=== PATIENT | female | born 1970 | race Caucasian/White ===

== ENCOUNTER 2025-02-18 19:57 | Emergency (ER) | payer OTHER ==
--- OUTSIDE RECORDS SUMMARY | 2025-02-18 20:01 | XMS REPORT | Continuity of Care Document ---
Author Name Unknown Address [address] [facility] [place] [address] [facility] Address [address] 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 [employer] Insurance Name Role Phone MAXIMILIANO QUIÑONES Primary Care Physician Unavaila JENNIE Arellano Attending Clinician UnaXAVI Willard Attending Clinician Unavailable MAXIMILIANO QUIÑONES Attending Clinician Unavailable EDE HART Attending Clinician Unavailable HECTOR KHOURY Attending Clinician Unavailable Lawson Attending Clinician Unavail able MIHAELA ZAIDI Attending Clinician Unavailable Lawson Admitting Clinician Unavail able Payers Payer Name Policy Type Policy Number Effective Date Expirati on Date Source [place] [id number] 2021 00:00:00 Problems Condition Name Condition Details Condition Category Status Onset Date Resolution Date Last Treatment Date Treating Clinician Comments Source Fall Problem Active [facility] Periorbita l contusion of right eye Problem Active [facility] Sprain of right shoulder Problem Active [facility] Tension headache Problem Inactiv e [facility] Problem Condition [facility] Allergies, Adverse Reactions, Alerts Allergy Name Allergy Type Status Severity Reaction(s) Onset Date Inactive Date Treating Clinician Comments Source NO KNOWN DRUG ALLERGY Allergy to substanc e Active Unknown 2023-11 00:00: 00 TEL NO KNOWN DRUG ALLERGY Allergy to substanc e Active Unknown 02-28 00:00: 00 [facility] Social History Social Habit Start Date Stop Date Quantity Comments Source History of tobacco use TEL Sex Assigned At 1970 00:00:00 07-03 00:00:00 Female TEL Smoking Status Start Date Stop Date Source Never smoked tobacco (finding) [facility]EL Medications Ordered Medication Name Filled Medication Name Start Date Stop Date Current Medication? Ordering Clinician Indication Dosage Frequency Signature (SIG) Comments Components Source Oxycodone/A cetaminophe n (Percocet 5-325) 1 Each TAB 2023-11 13:26: 00 No 1 Every 6 Hours as needed for Pain [facility]EL Naproxen (Naprosyn) 500 Mg TAB 2023-11 13:25: 00 No 500mg Twice A Day as needed for Pain [facility]EL Acetaminoph en/Codeine Phosphate (Tylenol #3) 1 Each TAB 07-15 11:24: 00 No Every 4 Hours as needed for Pain [facility] Ibuprofen (Motrin) 800 Mg TAB 07-15 11:24: 00 No 800mg Every 8 Hours as needed for Pain [facility] Acetam/Buta lbital/Caff eine/Codein e (Fioricet W/Codeine) 1 Cap CAP 03-17 11:59: 00 No 1 Every 6 Hours as needed for Headache [facility] Ciprofloxac in Hcl (Ciloxin 0.3% Oph Soln) 75 Drop/5 Ml SOLN 2010-11 07:36: 00 No 1[drp] Every 2 Hours [facility] Ciprofloxac in Hcl 2010-11 07:36: 00 No 1[drp] Every 2 Hours [facility] Acetaminoph en/Hydrocod one Bitart (Vicodin 5-500) 1 Tab TAB 06-09 22:40: 00 No 1 Q 6 Hours Prn [facility] Cyclobenzap rine Hcl (Flexeril) 5 Mg TAB 06-09 22:40: 00 No 5mg Q 8 Hours Prn Muscle [facility] Naproxen (Naprosyn) 500 Mg TAB 06-09 22:40: 00 No 500mg Q 12 Hours Prn [facility] Acetaminoph en/Hydrocod one Bitart 06-09 22:40: 00 No 1 Q 6 Hours Prn [facility] Cyclobenzap rine Hcl 06-09 22:40: 00 No 5mg Q 8 Hours Prn Muscle [facility] Naproxen 06-09 22:40: 00 No 500mg Q 12 Hours Prn [facility] Acetaminoph en/Hydrocod one Bitart (Vicodin Es Tablet) 1 Tab TABLET 04-11 17:57: 00 No 1 Every 4 - 6 Hours [facility] Acetaminoph en/Hydrocod one Bitart 04-11 17:57: 00 No 1 Every 4 - 6 Hours [facility] Acyclovi No 1 Daily [facility] Icar No 1 Daily [facility] Prenatalvit No Daily [facility] Sertraline Hcl (Zoloft) 50 Mg TAB No 50mg Daily [facility] Sertraline Hcl No 50mg Daily [facility] Vital Signs Vital Name Observation Time Observation Value Comments S ource Body Temperature 2024-08-23 14:06:00 98.0 [degF] [facility] Heart Rate 2024-08-23 14:06:00 67 /min [facility] Respiratory rate 2024-08-23 14:06:00 16 /min [facility] BP Systolic 2024-08-23 14:06:00 151 mm[Hg] [facility]EL BP Diastolic 2024-08-23 14:06:00 71 mm[Hg] [facility] BMI (Body Mass Index) 2024-08-23 09:19:00 35.9 kg/m2 [facility] Height 2024-08-23 09:10:00 172.101513 cm TE L Weight 2024-08-23 09:10:00 107.370473 kg TE L BP Diastolic 2021-07-15 12:19:00 75 mm[Hg] [facility] Systolic 2021-07-15 12:19:00 136 mm[Hg] [facility] Heart Rate 2021-07-15 12:19:00 81 /min [facility] Respiratory rate 2021-07-15 12:19:00 19 /min [facility] Body Temperature 2021-07-15 12:19:00 98.1 [degF] [facility] BP Diastolic 2021-07-15 12:15:00 75 mm[Hg] [facility] BP Systolic 2021-07-15 12:15:00 136 mm[Hg] [facility] Heart Rate 2021-07-15 12:15:00 81 /min [facility] Respiratory rate 2021-07-15 12:15:00 19 /min [facility] BP Diastolic 2021-07-15 08:39:00 70 mm[Hg] [facility] BP Systolic 2021-07-15 08:39:00 135 mm[Hg] [facility] Heart Rate 2021-07-15 08:39:00 86 /min [facility] Respiratory rate 2021-07-15 08:39:00 20 /min [facility] Body Temperature 2021-07-15 08:39:00 98.1 [degF] [facility] Procedures Procedure Date / Time Performed Performing Clinician Source Computed tomography of abdomen and pelvis with contrast 2024-08-23 11:35:00 TEL X-ray of chest, two views 2024-08-23 00:00:00 [facility] X-ray of shoulder, two or more views 2024-08-23 00:00:00 [facility] Encounter Stat Only 2021-07-31 00:00:00 [facility] Encounter Stat Only 2021-07-22 00:00:00 [facility] X-ray of shoulder, two or more views 2021-07-15 00:00:00 [facility] Computed tomography of facial bones without contrast 2021-07-15 00:00:[address] [facility] [address] MAXILLOFACIAL W/O DYE 2021-07-15 00:00:00 [facility] X-RAY EXAM OF SHOULDER 2021-07-15 00:00:00 [facility] EMERGENCY DEPT VISIT 2021-07-15 00:00:00 [facility] Encounter Stat Only 2019-09-05 00:00:00 [facility] Cefazolin sodium injection 2019-08-25 00:00:00 [facility] Ketorolac tromethamine inj 2019-08-25 00:00:00 [facility] Inj midazolam hydrochloride 2019-08-25 00:00:00 [facility] Ondansetron hcl injection 2019-08-25 00:00:00 [facility] [id number] 2019-08-25 00:00:00 [facility] Fentanyl citrate injeciton 2019-08-25 00:00:00 [facility] Ringers lactate infusion 2019-08-25 00:00:00 [facility] Carpal tunnel release, right 2019-08-25 00:00:00 [facility] ROUTINE VENIPUNCTURE 2019-08-25 00:00:00 [facility] REVISE ULNAR NERVE AT WRIST 2019-08-25 00:00:00 [facility] CARPAL TUNNEL SURGERY 2019-08-25 00:00:00 [facility] METABOLIC PANEL TOTAL CA 2019-08-25 00:00:00 [facility] URINE TEST 2019-08-25 00:00:00 [facility] COMPLETE CBC AUTOMATED 2019-08-25 00:00:00 [facility] ELECTROCARDIOGRAM TRACING 2019-08-25 00:00:00 [facility] Lt nona band >=5"/yd 2019-08-25 00:00:00 [facility] ECG (electrocardiogram) 2019-08-22 00:00:00 [facility] Minor level established patient office visit 2019-08-15 00:00:00 [facility] Encounter Stat Only 2019-08-11 00:00:00 [facility] Encounters Start Date/Time End Date/Time Encounter Type Admission Type Attending [facility] Facility Care Department Encounter ID Source 2019-10-28 08:45:00 Inpatient JENNIE WATERS [facility] [id number] [facility] 2019-09-22 08:30:00 Inpatient JENNIE WATERS [facility] [id number] [facility] 2024-08-23 09:43:00 2024-08-23 14:09:00 Departed Emergency Room [facility] HCIS [id number] [facility]EL 2024-08-23 09:43:00 2024-08-23 14:09:00 Emergency ER XAVI OKEEFE [facility] [id number] [facility] 2023-12-16 09:07:00 2023-12-16 09:07:00 Outpatient MAXIMILIANO MAYO [facility] [id number] [facility] 2023-05-29 06:54:00 2023-05-29 13:50:00 ambulatory [id number] 2023-05-29 06:54:00 2023-05-29 13:50:00 Outpatient EDE DUTTA [facility] [id number] [facility] 2023-04-22 08:01:00 2023-05-08 00:01:00 Outpatient EDE DUTTA [facility] [id number] [facility] 2023-01-19 16:17:00 2023-02-06 00:01:00 [facility] [id number] [facility] 2023-01-19 16:17:00 2023-01-19 16:17:00 Outpatient HECTOR DICKENS CARMEN MORALES [id number] [facility] 2022-11-19 11:20:00 2022-12-09 00:01:00 Outpatient HECTOR DICKENS CARMEN MORALES [id number] [facility] 2022-10-31 09:20:00 2022-10-31 09:20:00 Outpatient MAXIMILIANO MAYO DARRYN CARMEN [id number] [facility] 2022-10-08 09:21:00 2022-10-08 00:01:00 Outpatient HECTOR DICKENS CARMEN MORALES [id number] [facility] 2022-09-01 09:57:00 2022-09-08 00:01:00 Outpatient GISEL DICKENSBOBBY MORALES [id number] [facility] 2022-08-06 00:00:00 2022-08-06 00:00:00 Outpatient ANGEL_Carl_ Francisco_ [facility] [id number] [facility] 2021-07-22 17:18:00 2021-07-22 17:18:00 Discharged Recurring HECTOR DICKENS [id number] [facility] 2021-07-15 09:46:00 2021-07-15 12:20:00 Departed Emergency Room ER MIHAELA ZAIDI [id number] [facility] 2019-09-05 08:20:00 2019-09-08 23:59:00 Discharged Recurring ILIANA Will. Elizabeth [id number] [facility] 2019-08-25 13:38:00 2019-08-25 16:25:00 Departed Surgical Day Care ILIANA MORALES [place] [id number] [facility] Results Test Description Test Time Test Comments Results Result Co mments Source TELBlood erythrocytes automated count (number/volume)2024-08-23 09:25:00* Test Item Value Reference Range Interpretation Comme [facility] Red Blood Count (test code = 789-8) 5.15 3.8-5.1 TELBlood hemoglobin measurement (mass/volume)2024-08-23 09:25:00* Test Item Value Reference Range Interpretation Comme [facility] Hemoglobin (test code = 718-7) 13.8 12.0-15.2 TELAutomated blood hematocrit (volume fraction)2024-08-23 09:25:00* Test Item Value Reference Range Interpretation Comme [facility] Hematocrit (test code = 4544-3) 42.7 34.0-45.5 TELAutomated erythrocyte mean corpuscular volume (MCV) nfsofdnptvk1831-94-67 09:25:00* Test Item Value Reference Range Interpretation Comme [facility] Mean Corpuscular Volume (bryan t code = 787-2) 83 80-94 TELAutomated erythrocyte mean corpuscular hemoglobin (mass per erythrocyte) 2024-08-23 09:25:00* Test Item Value Reference Range Interpretation Comme nts Mean Corpuscular Hemoglobin (test code = 785-6) 26.8 27.0-33.0 TELAutomated erythrocyte mean corpuscular hemoglobin concentration measurement (mass/kms7482-95-43 09:25:00* Test Item Value Reference Range Interpretation Commomar nts Mean Corpuscular Hemoglobin Concent (test code = 786-4) 32.3 33.0-37.0 TELAutomated erythrocyte distribution width [id number] 09:25:00* Test Item Value Reference Range Interpretation Commomar nts Red Cell Distribution Width (test code = 788-0) 15.7 10.7-14.5 TELAutomated blood platelet count (count/volume)2024-08-23 09:25:00* Test Item Value Reference Range Interpretation Commomar [facility] Platelet Count (test code = 777-3) 326 150-450 TELAutomated blood platelet mean volume klpxryvrcly0731-08-80 09:25:00* Test Item Value Reference Range Interpretation Commomar [facility] Mean Platelet Volume (test c ode = 84038-1) 10.3 8.5-12.1 TELAutomated blood neutrophil count as percentage of total vzcqjlcglm5141-82-98 09:25:00* Test Item Value Reference Range Interpretation Commomar nts Neutrophils (%) (Auto) (test code = 770-8) 64 47-75 TELAutomated blood immature granulocyte count as percentage of total leukocytes 2024-08-23 09:25:00* Test Item Value Reference Range Interpretation Commomar nts Immature Granulocyte # (Auto ) (test code = 14808-5) 0.0 0.0-0.0 TELAutomated blood lymphocyte count as percentage of total ykggfnjywq6098-67-39 09:25:00* Test Item Value Reference Range Interpretation Commomar nts Lymphocytes (%) (Auto) (test code = 736-9) 25 25-44 TELAutomated blood monocyte count as percentage of total oadqhiwbbs5210-07-22 09:25:00* Test Item Value Reference Range Interpretation Commomar nts Monocytes (%) (Auto) (test c ode = 5905-5) 9 3-10 TELAutomated blood eosinophil count as percentage of total fapbtihbag5563-87-33 09:25:00* Test Item Value Reference Range Interpretation Commomar nts Eosinophils (%) (Auto) (test code = 713-8) 2 0-7 TELAutomated blood basophil count as percentage of total hqmwdstwyv7069-55-11 09:25:00* Test Item Value Reference Range Interpretation Comme nts Basophils (%) (Auto) (test c ode = 706-2) 0 0-1 TELAutomated blood nucleated erythrocyte count as percentage of total leukocytes 2024-08-23 09:25:00* Test Item Value Reference Range Interpretation Comme nts Nucleated Red Blood Cells % (test code = 93278-8) 0.0 0-0.2 TELAutomated blood neutrophil count (number/volume)2024-08-23 09:25:00* Test Item Value Reference Range Interpretation Comme nts Neutrophils # (Auto) (test c ode = 751-8) 4.8 1.3-6.7 TELAutomated blood lymphocyte count (number/volume)2024-08-23 09:25:00* Test Item Value Reference Range Interpretation Comme nts Lymphocytes # (Auto) (test c ode = 731-0) 1.8 1.4-4.1 TELBlood monocytes automated count (number/volume)2024-08-23 09:25:00* Test Item Value Reference Range Interpretation Comme nts Monocytes # (Auto) (test code = 742-7) 0.6 0-1.3 TELAutomated blood eosinophil [id number] 09:25:00* Test Item Value Reference Range Interpretation Comme nts Eosinophils # (Auto) (test c ode = 711-2) 0.1 0-0.8 TELAutomated blood basophil count (number/volume)2024-08-23 09:25:00* Test Item Value Reference Range Interpretation Comme nts Basophils # (Auto) (test code = 704-7) 0.0 0-0.1 TELnRBC # Bld [id number] 09:25:00* Test Item Value Reference Range Interpretation Comme nts Nucleated Red Blood Cells # (test code = 771-6) 0.00 0-0.01 TELService Cmnt 04 [id number]-Veh2864-24-15 09:25:00* Test Item Value Reference Range Interpretation Comme nts Manual Differential (test co de = 8265-1) Not Ind TELSodium ZesCg-uXrs7024-63-15 09:25:00* Test Item Value Reference Range Interpretation Comme nts Sodium Level (test code = 2951-2) 143 136-145 TELSerum or plasma potassium measurement (moles/volume)2024-08-23 09:25:00* Test Item Value Reference Range Interpretation Comme nts Potassium Level (test code = 2823-3) 3.8 3.5-5.1 TELSerum or plasma chloride measurement (moles/volume)2024-08-23 09:25:00* Test Item Value Reference Range Interpretation Comme nts Chloride Level (test code = 2075-0) 108 98-107 TELSerum or plasma total carbon dioxide measurement (moles/volume)2024-08-23 09:25:00* Test Item Value Reference Range Interpretation Comme nts Carbon Dioxide Level (test c ode = 8-9) 24 22-29 TELSerum or plasma anion gap determination (moles/volume)2024-08-23 09:25:00* Test Item Value Reference Range Interpretation Comme nts Anion Gap (test code = 24831-4) 15 8-18 TELSerum or plasma urea nitrogen measurement (mass/volume)2024-08-23 09:25:00* Test Item Value Reference Range Interpretation Comme nts Blood Urea Nitrogen (test co de = 3094-0) 10 10-20 TELSerum or plasma creatinine measurement (mass/volume)2024-08-23 09:25:00* Test Item Value Reference Range Interpretation Comme nts Creatinine (test code = 2160-0) 0.8 0.6-1.1 TELGFR/BSA.pred SerPl BGKD-RmQYsy1870-15-15 09:25:00* Test Item Value Reference Range Interpretation Comme nts Estimat Glomerular Filtratio n Rate (test code = 75228-2) 80 67-119 TELSerum or plasma glucose measurement (mass/volume)2024-08-23 09:25:00* Test Item Value Reference Range Interpretation Comme nts Glucose Level (test code = 2345-7) 102 60-100 TELSerum or plasma calcium measurement (mass/volume)2024-08-23 09:25:00* Test Item Value Reference Range Interpretation Comme nts Calcium Level (test code = 26075-0) 9.7 8.4-10.2 TELSerum or plasma total bilirubin measurement (mass/volume)2024-08-23 09:25:00 * Test Item Value Reference Range Interpretation Comme nts Total Bilirubin (test code = 1975-2) 1.1 0.2-1.2 TELSerum or plasma aspartate aminotransferase measurement (enzymatic activity/volume)2024-08-23 09:25:00* Test Item Value Reference Range Interpretation Comme nts Aspartate Amino Transf (AST/ SGOT) (test code = 1920-8) 25 5-34 TELSerum or plasma alanine aminotransferase measurement (enzymatic activity/volume)2024-08-23 09:25:00* Test Item Value Reference Range Interpretation Comme nts Alanine Aminotransferase (AL T/SGPT) (test code = 1742-6) 29 0-55 TELSerum or plasma protein measurement (mass/volume)2024-08-23 09:25:00* Test Item Value Reference Range Interpretation Comme nts Total Protein (test code = 2885-2) 7.8 6.4-8.3 TELSerum or plasma albumin measurement (mass/volume)2024-08-23 09:25:00* Test Item Value Reference Range Interpretation Comme nts Albumin (test code = 1751-7) 4.4 3.5-5.0 TELSerum or plasma alkaline phosphatase measurement (enzymatic activity/volume) 2024-08-23 09:25:00* Test Item Value Reference Range Interpretation Comme nts Alkaline Phosphatase (test c ode = 6768-6) 111 40-150 TELAutomated blood leukocyte count (number/volume)2019-08-22 12:23:00* Test Item Value Reference Range Interpretation Comme nts White Blood Count (test code = 6690-2) 7.0 4.5-11.5 [facility] count (number/volume)2019-08-22 12:23:00* Test Item Value Reference Range Interpretation Comme nts Red Blood Count (test code = 789-8) 4.55 3.8-5.1 [facility] hemoglobin measurement (mass/volume)2019-08-22 12:23:00* Test Item Value Reference Range Interpretation Comme nts Hemoglobin (test code = 718-7) 9.7 12.0-15.2 [facility] HealthAutomated blood hematocrit (volume fraction)2019-08-22 12:23:00* Test Item Value Reference Range Interpretation Comme nts Hematocrit (test code = 4544-3) 32.8 34.0-45.5 [facility] Health[facility]ated erythrocyte mean corpuscular volume (MCV) measurement 2019-08-22 12:23:00* Test Item Value Reference Range Interpretation Comme nts Mean Corpuscular Volume (bryan t code = 787-2) 72 80-94 [facility] HealthAutomated erythrocyte mean corpuscular hemoglobin (mass per erythrocyte)2019-08-22 12:23:00* Test Item Value Reference Range Interpretation Comme nts Mean Corpuscular Hemoglobin (test code = 785-6) 21.3 27.0-33.0 [facility] HealthAutomated erythrocyte mean corpuscular hemoglobin concentration measurement (mass/fub4546-39-82 12:23:00* Test Item Value Reference Range Interpretation Comme nts Mean Corpuscular Hemoglobin Concent (test code = 786-4) 29.6 33.0-37.0 [facility] HealthAutomated erythrocyte distribution width [id number] 12:23:00 * Test Item Value Reference Range Interpretation Comme nts Red Cell Distribution Width (test code = 788-0) 18.1 10.7-14.5 [facility] HealthAutomated blood platelet count (count/volume)2019-08-22 12:23:00 * Test Item Value Reference Range Interpretation Comme nts Platelet Count (test code = 777-3) 349 150-450 [facility] HealthAutomated blood platelet mean volume ovnbliqhmok9041-31-32 12:23:00* Test Item Value Reference Range Interpretation Comme nts Mean Platelet Volume (test c ode = 05152-6) 11.3 5.7-10.7 [facility] HealthSerum or plasma sodium measurement (moles/volume)2019-08-22 12:23:00* Test Item Value Reference Range Interpretation Comme nts Sodium Level (test code = 2951-2) 138 136-145 [facility] Health[facility]um or plasma potassium measurement (moles/volume)2019-08-22 12:23:00* Test Item Value Reference Range Interpretation Comme nts Potassium Level (test code = 2823-3) 4.3 3.5-5.1 [facility] Health[facility] or plasma chloride measurement (moles/volume)2019-08-22 12:23:00* Test Item Value Reference Range Interpretation Comme nts Chloride Level (test code = 2075-0) 106 98-107 [facility] Health[facility]um or plasma carbon dioxide measurement (moles/volume) 2019-08-22 12:23:00* Test Item Value Reference Range Interpretation Comme nts Carbon Dioxide Level (test c ode = 2027-) 21 24-33 [facility] HealthSerum or plasma anion gap 4 determination (moles/volume) 2019-08-22 12:23:00* Test Item Value Reference Range Interpretation Comme nts Anion Gap (test code = 1863-0) 15 8-18 [facility] Health[facility]um or plasma urea nitrogen measurement (mass/volume)2019-08-22 12:23:00* Test Item Value Reference Range Interpretation Comme nts Blood Urea Nitrogen (test co de = 3094-0) 11 6-20 [facility] Health[facility]um or plasma creatinine measurement (mass/volume)2019-08-22 12:23:00* Test Item Value Reference Range Interpretation Comme nts Creatinine (test code = 2160-0) 0.7 0.7-1.3 [facility] (GFR) estimation/1.73 sq m using serum, plasma, or whole blood creatinine measurement with MDRD equation 2019-08-22 12:23:00* Test Item Value Reference Range Interpretation Comme nts Estimat Glomerular Filtratio n Rate (test code = 44535-6) 95 73-125 [facility] HealthSerum or plasma glucose measurement (mass/volume)2019-08-22 12:23:00* Test Item Value Reference Range Interpretation Comme nts Glucose Level (test code = 2345-7) 86 60-100 [facility] Health[facility]um or plasma calcium measurement (mass/volume)2019-08-22 12:23:00* Test Item Value Reference Range Interpretation Comme nts Calcium Level (test code = 57322-0) 8.9 8.3-10.5 [facility]
[2025-02-18] MEDS ORDERED: ONDANSETRON 4 MG/2 ML VIAL ONE (20:06)
[2025-02-18] MEDS ORDERED: NA CHLORIDE 0.9% 1,000 ML ONE (20:06)
[2025-02-18 20:28] LABS: Absolute Eosinophils 0.1 K/uL (0-0.5); Absolute Lymphocytes (CBC) 0.9 K/uL (0.7-4.9); Absolute Monocytes 0.4 K/uL (0.1-1.3); Absolute Neutrophil 5.4 K/uL (1.8-8.0); Basophils % 0.4 % (0-1.3); Eosinophils % 1.3 % (0-4.4); Hematocrit 35.9 % (36.0-45.0); Hemoglobin 11.8 g/dL (12.0-15.0); Lymphocytes % 13.8 % (15.3-44.8); MCH 26.3 pg (27.0-35.0); MCHC 32.9 g/dL (32.0-36.0); MCV 80.1 fL (80-100); MPV 8.8 fL (7.6-11.3); Monocytes % 5.8 % (3.3-12.3); Neutrophils % 78.7 % (41.7-73.7); Nucleated Red Blood Cells % 0.1 % (0-0); Platelets 230 thou/uL (152-406); RBC Red Blood Cell Count 4.48 M/uL (3.86-4.86); Red Cell Distribution Width 15.1 % (12.1-15.2)
[2025-02-18] MEDS ORDERED: PROMETHAZINE INJ 25 MG/ML AMP ONE (20:28)
[2025-02-18 20:35] LABS: Protime INR 1.06
[2025-02-18 20:47] LABS: BUN Blood Urea Nitrogen 9 mg/dL (7-18); Bicarbonate 25 mEq/L (21-32); Glomerular Filtration Rate 97 ml/min (=/>90); Glucose Level 111 mg/dL (74-106); NT PRO-BNP 97 pg/mL (<125); Sodium Level 139 mEq/L (136-145)
[2025-02-18 20:51] LABS: Troponin High Sensitivity < 3.0 pg/mL (<58.9)
[2025-02-18 20:54] LABS: Influenza A Ag Negative; Influenza B Ag Negative; SARS-CoV-2 Antigen Rapid Res Negative (Negative)
--- NOTE | 2025-02-18 21:24 | RAD REPORT ---
EXAM: CT brain without contrast HISTORY: Dizziness COMPARISON: None TECHNIQUE: Multiple contiguous axial images were obtained and a CT of the brain without contrast.. Sagittal and coronal reconstruction performed. Automated exposure control, adjustment of the mA and/or kV according to patient size, and/or iterative reconstruction. Unless otherwise specified, incidental f indings do not require dedicated imaging follow-up FINDINGS: An intracranial bleed is not seen Ventricles are normal caliber No extra-axial fluid collection noted No significant hypodensity within the brain No fluid within the visualized sinuses or mastoids noted. IMPRESSION: No acute intracranial abnormality noted. If the patient continues to have symptoms to suggest an acute intracranial abnormality then MRI of th e brain would be recommended.
--- NOTE | 2025-02-18 21:34 | RAD REPORT ---
EXAMINATION: CT ABDOMEN AND PELVIS WITH CONTRAST CLINICAL INDICATION: Abdominal pain TECHNIQUE: CT abdomen and pelvis was performed, after the administration of 100 cc Isovue-300.. Sagit atul and coronal reconstructions were obtained. One or more of the following dose reduction techniques were used: Automated exposure control, adjustment of the mA and kV according to patient si ze, and iterative reconstruction. Unless otherwise specified, incidental findings do not require dedicated imaging follow-up. [id number]. Oral contrast was not given which limits evaluation of bowel and appendix. COMPARISON: .None FINDINGS: Post surgical changes involve the stomach. Liver, spleen, pancreas, adrenals and kidneys appear unremarkable No evidence of diverticulitis. Small umbilical hernia. No adnexal mass Fluid within nondilated large and small bowel : IMPRESSION: Fluid within nondilated large and small bowel may indicate an enteritis
[2025-02-18] MEDS ORDERED: CIPROFLOXACIN 400mg IV 400 MG/200 ML BAG IV ONE (21:53)
[2025-02-18] MEDS ORDERED: METRONIDAZOLE 500mg IVPB 500 MG/100 ML BAG IV ONE (21:53)
--- NOTE | 2025-02-19 00:53 | ER ---
Nurse's Notes [facility] Name: Elma Phelps Age: 54 yrs Sex: Female : 1970 Arrival Date: 02/18/2025 Time: 19:57 Bed 20 Private MD: Diagnosis: Other specified noninfective gastroenteritis and colitis Presentation: 02/18 19:58 Chief complaint: Patient states: Pt came from work and was feeling dizzy and nauseous bm8 that started at 1920. 19:58 Coronavirus screen: Vaccine status: Patient reports receiving the 2nd dose of the covid bm8 vaccine. At this time, the client does not indicate any symptoms associated with coronavirus-19. Ebola Screen: Patient negative for fever greater than or equal to 101.5 degrees Fahrenheit, and additional compatible Ebola Virus Disease symptoms Patient denies exposure to infectious person. Patient denies travel to an Ebola-affected area in the 21 days before illness onset. No symptoms or risks identified at this time. Initial Sepsis Screen: Does the patient meet any 2 criteria? No. Patient's initial sepsis screen is negative. Does the patient have a suspected source of infection? No. Patient's initial sepsis screen is negative. Risk Assessment: Do you want to hurt yourself or someone else? Patient reports no desire to harm self or others. Onset of symptoms was February 18, 2025 at 19:20. 19:58 Method Of Arrival: Ambulatory bm8 19:58 Acuity: BRIANA 2 bm8 Triage Assessment: 19:58 General: Appears distressed, uncomfortable, Behavior is calm, cooperative, appropriate bm8 for age. 19:58 Pain: Denies pain. EENT: No deficits noted. No signs and/or symptoms were reported bm8 regarding the EENT system. 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 Full function Gait is unsteady, Speech is normal, Facial symmetry appears normal, Pupils are PERRLA, Pupil Size: 4 mm Intact Reports dizziness, since 1919. Cardiovascular: Denies chest pain, shortness of breath, Heart tones S1 S2 present Capillary refill < 3 seconds in bilateral fingers Patient's skin is warm and dry. Rhythm is RBBB. Respiratory: Airway is patent Trachea midline Respiratory effort is even, unlabored, Respiratory pattern is regular, symmetrical, Breath sounds are clear bilaterally. GI: Reports nausea. : No signs and/or symptoms were reported regarding the genitourinary system. Derm: No signs and/or symptoms reported regarding the dermatologic system. Musculoskeletal: No signs and/or symptoms reported regarding the musculoskeletal system. 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 - Infectious Disease History:: Denies. - Social history:: Smoking status: Patient denies any tobacco usage or history of. Screenin:49 [facility] ED Fall Risk Assessment (Adult) History of falling in the last 3 months, bm8 including since admission No falls in past 3 months (0 pts) Confusion or Disorientation No (0 pts) Intoxicated or Sedated No (0 pts) Impaired Gait Yes (1 pt) Mobility Assist Device Used No (0 pt) Altered Elimination No (0 pt) Score/Fall Risk Level 0 - 2 = Low Risk Oriented to surroundings, Maintained a safe environment, Educated pt \T\ family on fall prevention, incl call for assistance when getting out of bed, Assessed \T\ reinforced patient's understanding of fall precautions, Hourly rounding (assess needs \T\ fall precautionary measures) done, Used ambulatory aids as needed (educated on \T\ assisted with), Used gait belt as appropriate. Abuse screen: Denies threats or abuse. Nutritional screening: No deficits noted. Tuberculosis screening: No symptoms or risk factors identified. Assessment: 20:49 Reassessment: Patient appears in no apparent distress at this time. Patient and/or bm8 family updated on plan of care and expected duration. Pain level reassessed. Patient is alert, oriented x 3, equal unlabored respirations, skin warm/dry/pink. Patient states feeling better. Patient states symptoms have improved. GI: Patient currently denies nausea. 21:59 Reassessment: Patient appears in no apparent distress at this time. Patient and/or bm8 family updated on plan of care and expected duration. Pain level reassessed. Patient is alert, oriented x 3, equal unlabored respirations, skin warm/dry/pink. Patient denies pain at this time. Patient states feeling better. Patient states symptoms have improved. GI: Patient currently denies nausea. 22:56 Reassessment: Patient appears in no apparent distress at this time. Patient and/or bm8 family updated on plan of care and expected duration. Pain level reassessed. Patient is alert, oriented x 3, equal unlabored respirations, skin warm/dry/pink. Patient denies pain at this time. Patient states feeling better. Patient states symptoms have improved. 02/19 00:11 Reassessment: Patient appears in no apparent distress at this time. No changes from 8 previously documented assessment. Patient and/or family updated on plan of care and expected duration. Pain level reassessed. Patient is alert, oriented x 3, equal unlabored respirations, skin warm/dry/pink. 01:06 Reassessment: Patient appears in no apparent distress at this time. Patient and/or bm8 family updated on plan of care and expected duration. Pain level reassessed. Patient is alert, oriented x 3, equal unlabored respirations, skin warm/dry/pink. Patient denies pain at this time. Patient states feeling better. Patient states symptoms have improved. Vital Signs: 02/18 19:58 BP 166 / 97; Pulse 82; Resp 18; Temp 98.1; Pulse Ox 100% ; Pain 0/10; bm8 20:49 BP 136 / 96; Pulse 84; Resp 18; Temp 98.1; Pulse Ox 100% ; Pain 0/10; bm8 21:59 BP 134 / 78; Pulse 69; Resp 18; Temp 98.1; Pulse Ox 94% ; Pain 0/10; bm8 22:56 BP 122 / 91; Pulse 68; Resp 18; Temp 98.1; Pulse Ox 91% ; Pain 0/10; bm8 02/19 00:11 BP 129 / 74; Pulse 67; Resp 14; Temp 98.1; Pulse Ox 94% ; Pain 0/10; bm8 01:06 BP 133 / 75; Pulse 60; Resp 15; Temp 98.2; Pulse Ox 100% ; Pain 0/10; bm8 02/18 19:58 Pain Scale: Adult bm8 20:49 Pain Scale: Adult bm8 21:59 Pain Scale: Adult bm8 22:56 Pain Scale: Adult bm8 02/19 00:11 Pain Scale: Adult bm8 01:06 Pain Scale: Adult bm8 [place] Coma Score: 02/18 20:49 Eye Response: spontaneous(4). Motor Response: obeys commands(6). Verbal Response: bm8 oriented(5). Total: 15. 21:59 Eye Response: spontaneous(4). Motor Response: obeys commands(6). Verbal Response: bm8 oriented(5). Total: 15. 22:56 Eye Response: spontaneous(4). Motor Response: obeys commands(6). Verbal Response: bm8 oriented(5). Total: 15. 02/19 00:11 Eye Response: spontaneous(4). Motor Response: obeys commands(6). Verbal Response: bm8 oriented(5). Total: 15. 01:06 Eye Response: spontaneous(4). Motor Response: obeys commands(6). Verbal Response: bm8 oriented(5). Total: 15. ED Course: 02/18 19:58 Patient arrived in ED. [email or web address] 19:58 Arm band placed on right wrist. bm8 19:59 Bayron Prieto, RN is Primary Nurse. bm8 19:59 Shashank Wong FNP-C [facility]. dr5 20:00 Ursula Jaramillo MD is Attending Physician. dr5 20:05 No provider procedures requiring assistance completed. Initial lab(s) drawn, by me, bm8 sent to lab. EKG done, by ED staff, reviewed by Shashank LARA COVID swab sent to lab. Flu and/or RSV swab sent to lab. 20:05 Inserted saline lock: 20 gauge in right forearm, using aseptic technique. Blood bm8 collected. Flushed with 10 mL NS. Patient maintains SpO2 saturation greater than 95% on room air. 20:33 Triage completed. bm8 20:49 Patient has correct armband on for positive identification. Placed in gown. Bed in low bm8 position. Call light in reach. Side rails up X2. Client placed on continuous cardiac and pulse oximetry monitoring. NIBP monitoring applied. case monitor on. Pulse ox on. NIBP on. Door closed. Noise minimized. Warm blanket given. Pillow given. Verbal reassurance given. Head of bed elevated. 20:58 CT Head Brain wo Cont In Process Unspecified. EDMS 21:07 CT Abd/Pelvis - IV Contrast Only In Process Unspecified. EDMS 02/19 01:06 Provided Education on: post er care. bm8 01:06 IV discontinued, intact, bleeding controlled, No redness/swelling at site. Pressure bm8 dressing applied. Administered Medications: 02/18 20:26 Drug: NS 0.9% IV 1000 ml IV at 1000 ml once; to be given as a bolus over 60 minutes bm8 Route: IV; Rate: 1000 ml; Site: right forearm; 22:00 Follow up: Response: No adverse reaction; IV Status: Completed infusion bm8 20:26 Drug: Ondansetron IVP 4 mg IVP once; over 2 minutes Route: IVP; Site: right forearm; bm8 21:21 Follow up: Response: No adverse reaction bm8 20:33 Drug: Promethazine IVP 25 mg IVP once Route: IVP; Site: right forearm; bm8 21:21 Follow up: Response: No adverse reaction bm8 21:59 Drug: metroNIDAZOLE IVPB 500 mg 100 ml IVPB at 200 ml/hr once over 30 mins Volume: 100 bm8 ml; Route: IVPB; Rate: 200 ml/hr; Infused Over: 30 mins; Site: right forearm; 22:56 Follow up: Response: No adverse reaction; IV Status: Completed infusion bm8 22:55 Drug: Ciprofloxacin IVPB 400 mg 200 ml IVPB once over 60 mins Volume: 200 ml; Route: bm8 IVPB; Infused Over: 60 mins; Site: right forearm; 02/19 00:13 Follow up: Response: No adverse reaction; IV Status: Completed infusion bm8 Medication: 02/18 20:49 VIS not applicable for this client. bm8 Outcome: 02/19 00:53 Discharge ordered by . sim 01:06 Discharged to home ambulatory, bm8 01:06 Condition: stable 01:06 Discharge instructions given to patient, family, Instructed on discharge instructions, follow up and referral plans. no drinking with medication, no driving heavy equipment, medication usage, safety practices, Demonstrated understanding of instructions, follow-up care, medications, Prescriptions given X 3, 01:14 Patient left the ED. bm8 Signatures: Dispatcher [employer] EDSC Anel Sethi Brad, RN RN bm8 Marvin Shashank, STEEL ERECTOR APPRENTICE-C STEEL ERECTOR APPRENTICE-Cdr5
--- NOTE | 2025-02-19 00:53 | EDPHYS ---
Physician Documentation [facility] Name: Elma Phelps Age: 54 yrs Sex: Female : 1970 Arrival Date: 02/18/2025 Time: 19:57 Bed 20 Private MD: ED Physician Ursula Jaramillo HPI: 02/19 02:04 This 54 yrs old Female presents to ER via Ambulatory with complaints of dr5 Dizziness, Nausea. 02:04 Patient is a 54-year-old female with no past medical history coming in with nausea and dr5 dizziness that started around 1900. Patient denies any pain, chest pain, shortness of breath.. ADMIN DIR: 02/18 19:58 unknown bm8 Historical: - Allergies: 20:46 No Known Allergies; bm8 - Home Meds: 20:46 duloxetine 60 mg oral capsule,delayed release (e.c.) 2 caps daily [Active]; bm8 - PMHx: 20:46 None; bm8 - Immunization history:: Adult Immunizations up to date. - Infectious Disease History:: Denies. - Social history:: Smoking status: Patient denies any tobacco usage or history of. ROS: 02/19 02:04 Constitutional: as per hpi dr5 Exam: 02:04 Constitutional: This is a well developed, well nourished patient who is awake, alert, dr5 and in no acute distress. Head/Face: Normocephalic, atraumatic. Eyes: Pupils equal round and reactive to light, extra-ocular motions intact. Lids and lashes normal. Conjunctiva and sclera are non-icteric and not injected. Cornea within normal limits. Periorbital areas with no swelling, redness, or edema. Neck: Trachea midline, no thyromegaly or masses palpated, and no cervical lymphadenopathy. Supple, full range of motion without nuchal rigidity, or vertebral point tenderness. No Meningismus. Chest/axilla: Normal chest wall appearance and motion. Nontender with no deformity. No lesions are appreciated. Cardiovascular: Regular rate and rhythm with a normal S1 and S2. Normal PMI, no JVD. No pulse deficits. Respiratory: Lungs have equal breath sounds bilaterally, clear to auscultation. No rales, rhonchi or wheezes noted. No increased work of breathing, no retractions or nasal flaring. Back: No spinal tenderness. No costovertebral tenderness. Full range of motion. Skin: Warm, dry with normal turgor. Normal color with no rashes, no lesions, and no evidence of cellulitis. Neuro: Awake and alert, GCS 15, oriented to person, place, time, and situation. Cranial nerves II-XII grossly intact. Motor strength 5/5 in all extremities. Sensory grossly intact. Cerebellar exam normal. Normal gait. Vital Signs: 02/18 19:58 BP 166 / 97; Pulse 82; Resp 18; Temp 98.1; Pulse Ox 100% ; Pain 0/10; bm8 20:49 BP 136 / 96; Pulse 84; Resp 18; Temp 98.1; Pulse Ox 100% ; Pain 0/10; bm8 21:59 BP 134 / 78; Pulse 69; Resp 18; Temp 98.1; Pulse Ox 94% ; Pain 0/10; bm8 22:56 BP 122 / 91; Pulse 68; Resp 18; Temp 98.1; Pulse Ox 91% ; Pain 0/10; bm8 02/19 00:11 BP 129 / 74; Pulse 67; Resp 14; Temp 98.1; Pulse Ox 94% ; Pain 0/10; bm8 01:06 BP 133 / 75; Pulse 60; Resp 15; Temp 98.2; Pulse Ox 100% ; Pain 0/10; bm8 02/18 19:58 Pain Scale: Adult bm8 20:49 Pain Scale: Adult bm8 21:59 Pain Scale: Adult bm8 22:56 Pain Scale: Adult bm8 02/19 00:11 Pain Scale: Adult bm8 01:06 Pain Scale: Adult bm8 [place] Coma Score: 02/18 20:49 Eye Response: spontaneous(4). Motor Response: obeys commands(6). Verbal Response: bm8 oriented(5). Total: 15. 21:59 Eye Response: spontaneous(4). Motor Response: obeys commands(6). Verbal Response: bm8 oriented(5). Total: 15. 22:56 Eye Response: spontaneous(4). Motor Response: obeys commands(6). Verbal Response: bm8 oriented(5). Total: 15. 02/19 00:11 Eye Response: spontaneous(4). Motor Response: obeys commands(6). Verbal Response: bm8 oriented(5). Total: 15. 01:06 Eye Response: spontaneous(4). Motor Response: obeys commands(6). Verbal Response: bm8 oriented(5). Total: 15. MDM: 02/18 20:05 Medical Screening Exam initiated dr5 02/19 02:04 Differential diagnosis: Enteritis, colitis, Vertigo. Data reviewed: vital signs, nurses dr5 notes. Care significantly affected by the following Social Determinants of Health: Poor access to healthcare and/or lack of insurance, Poor access to transportation, Problems related to employment. Counseling: I had a detailed discussion with the patient and/or guardian regarding the historical points, exam findings, and any diagnostic results supporting the discharge/admit diagnosis, the presence of at least one elevated blood pressure reading (>120/80) during this emergency department visit, lab results, radiology results, the need for outpatient follow up, for definitive care, a family practitioner, a tip bander, to return to the emergency department if symptoms worsen or persist or if there are any questions or concerns that arise at home. ED course: Patient patient is feeling much better and nausea has resolved. Will cover for colitis with Cipro and Flagyl. Educated not to drink alcohol with Flagyl. Alternate Tylenol Motrin as needed for pain. Follow-up with primary care doctor this week and strict ER Precautions given.. 02/18 20:04 Order name: Basic Metabolic Panel; Complete Time: 21:30 [facility] 02/18 20:04 Order name: CBC with Diff; Complete Time: 20:41 [facility] 02/18 20:04 Order name: NT PRO-BNP; Complete Time: 21:30 [facility] 02/18 20:04 Order name: PT-INR; Complete Time: 20:40 [facility] 02/18 20:04 Order name: Troponin HS; Complete Time: 21:30 [facility] 02/18 20:04 Order name: COVID-19 Ag + Flu A+B Ag; Complete Time: 21:30 [facility] 02/18 20:50 Order name: Glucose, Ancillary Testing; Complete Time: 21:30 [facility] 02/18 20:27 Order name: CT Head Brain wo Cont; Complete Time: 21:30 dr5 02/18 20:40 Order name: CT Abd/Pelvis - IV Contrast Only; Complete Time: 21:35 dr5 02/18 20:04 Order name: EKG; Complete Time: 20:04 dr5 02/18 20:04 Order name: Cardiac monitoring; Complete Time: dr5 02/18 20:04 Order name: EKG - Nurse/Tech; Complete Time: dr5 02/18 20:04 Order name: IV Saline Lock; Complete Time: dr5 02/18 20:04 Order name: Labs collected and sent; Complete Time: dr5 02/18 20:04 Order name: O2 Per Protocol; Complete Time: dr5 02/18 20:04 Order name: O2 Sat Monitoring; Complete Time: dr5 EC/12 20:02 Rate is 86 beats/min. Rhythm is regular. QRS [place] is Normal. AR interval is normal at dr5 138 msec. QRS interval is normal at 134 msec. QT interval is normal at 400 msec. Administered Medications: 20:26 Drug: NS 0.9% IV 1000 ml IV at 1000 ml once; to be given as a bolus over 60 minutes bm8 Route: IV; Rate: 1000 ml; Site: right forearm; 22:00 Follow up: Response: No adverse reaction; IV Status: Completed infusion bm8 20:26 Drug: Ondansetron IVP 4 mg IVP once; over 2 minutes Route: IVP; Site: right forearm; bm8 21:21 Follow up: Response: No adverse reaction bm8 20:33 Drug: Promethazine IVP 25 mg IVP once Route: IVP; Site: right forearm; bm8 21:21 Follow up: Response: No adverse reaction bm8 21:59 Drug: metroNIDAZOLE IVPB 500 mg 100 ml IVPB at 200 ml/hr once over 30 mins Volume: 100 bm8 ml; Route: IVPB; Rate: 200 ml/hr; Infused Over: 30 mins; Site: right forearm; 22:56 Follow up: Response: No adverse reaction; IV Status: Completed infusion bm8 22:55 Drug: Ciprofloxacin IVPB 400 mg 200 ml IVPB once over 60 mins Volume: 200 ml; Route: bm8 IVPB; Infused Over: 60 mins; Site: right forearm; 02/19 00:13 Follow up: Response: No adverse reaction; IV Status: Completed infusion bm8 Disposition Summary: 02/19/25 00:53 Discharge Ordered Notes: Location: Home dr5 Condition: Stable dr5 Diagnosis - Other specified noninfective gastroenteritis and colitis dr5 Followup: dr5 - With: Emergency Department - When: As needed - Reason: Worsening of condition Followup: dr5 - With: Private Physician - When: 1 - 2 days - Reason: Recheck today's complaints, Continuance of care, Re-evaluation by your physician Discharge Instructions: - Discharge Summary Sheet dr5 - Colitis dr5 Forms: - Work release form dr5 - Medication Reconciliation Form dr5 - Antibiotic Education dr5 - Patient Portal Instructions dr5 - Leadership Thank You Letter dr5 Prescriptions: - Flagyl 500 mg Oral Tablet - take 1 tablet ORAL route every 12 hours for 7 days; 14 tablet; Refills: 0, dr5 Product Selection Permitted - Zofran 4 mg Oral Tablet - take 1 tablet ORAL route every 12 hours As needed; 20 tablet; Refills: 0, dr5 Product Selection Permitted - Cipro 500 mg Oral Tablet - take 1 tablet ORAL route every 12 hours for 7 days; 14 tablet; Refills: 0, dr5 Product Selection Permitted Signatures: Dispatcher [employer] EDMS Bayron Prieto RN RN bm8 Shashank Wong, RADIO RECORDER-C RADIO RECORDER-Cdr5 Corrections: (The following items were deleted from the chart) 02/18 20:04 20:04 BASIC METABOLIC PANEL+C.LAB.BRZ ordered. EDMS EDMS 20:04 20:04 CBC+H.LAB.BRZ ordered. EDMS EDMS 20:04 20:04 PROBNP+C.LAB.BRZ ordered. EDMS EDMS 20:04 20:04 PROTIME (+INR)+COAG.LAB.BRZ ordered. EDMS EDMS 20:04 20:04 Troponin High Sensitivity+C.LAB.BRZ ordered. EDMS EDMS 20:04 20:04 COVID-19 Ag + Flu A+B Ag+I.LAB.BRZ ordered. EDMS EDMS 20:41 20:41 Abdomen Pelvis W Con+CT.RAD.BRZ ordered. EDMS EDMS
[2025-02-19 01:33] VITALS: BP 133/75; TEMP 98.2; O2SAT 100
--- NOTE | 2025-02-20 10:51 | EKG ---
Test Date: 2025-02-18 Test Time: 20:02:47 Eight Arm Operator: ROSSANA MEASUREMENT RESULTS: Intervals: Rate: 86 HI: 138 QRSD: 134 QT: 400 QTc: 478 [place]: P: 55 HI: 138 QRS: 33 T: 24 INTERPRETIVE STATEMENTS: Normal sinus rhythm Right bundle branch block Abnormal ECG No previous ECG available for comparison Electronically Signed On 02-20-25 10:48:19 CDT by Mike Lopez
== END 2025-02-19 01:14 | disposition home or self-care (01) ==
LOC: ER 19:57
DX: K52.89 Other specified noninfective gastroenteritis and colitis (principal); Z11.52 Encounter for screening for COVID-19
CPT/HCPCS: 96365; 96361; 93005; 85025; 80048; 36415; 85610; 82947; 84484; 83880; 70450; 74177; 96375; 99285; 87428; Q9967; J2550; J2405; J0744; J7030